=== PATIENT | male | born 1995 | race Caucasian/White ===

== ENCOUNTER 2022-08-22 22:54 | Emergency (ER) | payer SELFPAY ==
[2022-08-22 23:03] VITALS: BP 161/87; PULSE 105; RESP 22; TEMP 36.9; O2SAT 96; BMI 28.1
--- NOTE | 2022-08-22 23:08 | W.ED.GENADLT ---
HPI - General Adult General: Chief complaint: Alcohol Stated complaint: pt would like to detoxic Time Seen by Provider: 08/22/22 23:05 History of Present Illness: Patient was brought in by the supervisor machine workers of a sober living house. The supervisor machine workers said patient needed to be detoxed. Further discussion with the patient noted the patient had just been released from [facility] 2 days ago and had spent the last 2 days with his family partying it up . Patient thought he could just check into the sober living house to complete his parole. However, since patient was intoxicated he was brought to the emergency department for detoxification. Patient states he really does not want to be here but he has to be sober in order to go to the sober living house. Patient denies any seizures. Patient reports no homicidal or suicidal thought. Associated symptoms: Deny nausea, rash or vomiting Review of Systems General: Reports: 10 or more systems reviewed and unremarkable except in HPI and below GI: Denies: nausea or vomiting Musc: Denies: neck pain or back pain Skin/Breast: Denies: rash Psych: Reports: anxiety; Denies: suicidal ideation or homicidal ideation Physical Exam Const: COMMON NORMALS: alert HENMT: COMMON NORMALS: normocephalic HEAD & SCALP: normocephalic Neck/C-Spine: COMMON NORMALS: full ROM Resp: COMMON NORMALS: normal respiratory effort Cardio: COMMON NORMALS: regular rate and regular rhythm RATE: regular rate RHYTHM: regular rhythm GI: COMMON NORMALS: non-tender Extremity: COMMON NORMALS: full ROM Neuro: SENSORIUM/ORIENTATION: Yes alert Skin: COMMON NORMALS: turgor normal GENERAL SKIN EXAM: turgor normal Course Vital Signs: Vital signs: Vital Signs Temperature 98.5 F 08/22/22 23:03 Pulse Rate 105 H 08/22/22 23:03 Respiratory Rate 22 H 08/22/22 23:03 Blood Pressure 161/87 08/22/22 23:03 Pulse Oximetry 96 08/22/22 23:03 Oxygen Delivery Me thod Room Air 08/22/22 23:03 MDM - General Adult Medical Decision Making Patient was brought in intoxicated from a sober living house in [place], [place] for detoxification. Patient had recently been released from [facility] and was going to go to the sober living house to complete his parole but prior to entering the house he was partying with his family. Patient arrived at the sober living house today intoxicated which he was not allowed to enter. Patient was brought to the ER for evaluation and treatment. No injuries noted. Patient admits to being intoxicated with alcohol. Patient has no history of seizures. Differential diagnosis includes but not limited to substance use disorder, alcohol intoxication, major depressive disorder, anxiety disorder. Laboratory values noted alcohol level of 312. Remainder of labs were unremarkable except for some elevation and sodium and chloride at 148?110. Patient was infused with a liter of IV fluids and was given a dose of thiamine. Patient was encouraged to drink plenty of water and fluids and stay well-hydrated. Requested case management to assist with follow-up with a treatment center for substance use disorder. Patient was given Librium 25 mg capsules to to use as needed for alcohol withdrawal symptoms. Patient reported understanding of care plan and need for follow-up or return to the ER. I reviewed this with Dr. Martinez who agreed to plan. Lab Data 08/22/22 23:13 08/22/22 23: Laboratory Results WBC 10.0 10^3/uL (4.0-10.0) 08/22/22 23: RBC 4.48 10^6/uL (4.1-5.3) 08/22/22 23: Hgb 14.4 g/dL (11.7-16.6) 08/22/22 23: Hct 42.4 % (42.0-52.0) 08/22/22 23: MCV 94.6 fl (80-94) H 08/22/22: MCH 32.1 pg (28.0-34.0) 08/22/22 23: MCHC 34.0 g/dL (30.0-36.0) 08/22/22 23: RDW 12.1 % (12.1-15.1) 08/22/22: Plt Count 277 10^3/cmm (130-400) 08/22/22 23: MPV 10.0 fL (7.4-10.4) 08/22/22 23: Neut % (Auto) 35.8 % 08/22/22 23: Lymph % (Auto) 52.2 % 08/22/22 23: [place] % (Auto) 8.3 % 08/22/22 23:13 Eos % (Auto) 2.5 % 08/22/22 23:13 Baso % (Auto) 0.9 % 08/22/22 23:13 Neut # (Auto) 3.59 10^3/uL (1.8-7.7) 08/22/22 23:13 Lymph # (Auto) 5.2 10^3/uL (0.8-4.8) H 08/22/22 23:13 [place] # (Auto) 0.8 10^3/uL (0.2-0.9) 08/22/22 23:13 Eos # (Auto) 0.3 10^3/uL (0.0-0.8) 08/22/22 23:13 Baso # (Auto) 0.1 10^3/uL (0.0-0.1) 08/22/22 23:13 Nucleated RBC % (auto) 0 % 08/22/22 23:13 Nucleated RBCs # 0.0 /100WBC 08/22/22 23:13 Sodium 148 mmol/L (136-145) H 08/22/22 23:13 Potassium 3.9 mmol/L (3.5-5.1) 08/22/22 23:13 Chloride 110 mmol/L (98-107) H 08/22/22 23:13 Carbon Dioxide 22 mmol/L (22-29) 08/22/22 23:13 Anion Gap 19.9 (5-19) H 08/22/22 23:13 BUN 11 mg/dL (6-20) 08/22/22 23:13 Creatinine 1.0 mg/dL (0.7-1.2) 08/22/22 23:13 GFR Calculation 89.6 mL/min (90-130) L 08/22/22 23:13 Glucose 90 mg/dL (65-115) 08/22/22 23:13 Calculated Osmolality 305 mOsm/kg (285-295) H 08/22/22 23:13 Calcium 8.6 mg/dL (8.5-10.5) 08/22/22 23:13 Total Bilirubin 0.4 mg/dL (0.15-1.2) 08/22/22 23:13 AST 29 U/L (0-40) 08/22/22 23:13 ALT 25 U/L (0-41) 08/22/22 23:13 Alkaline Phosphatase 103 U/L (40-130) 08/22/22 23:13 Total Protein 8.1 g/dL (6.6-8.7) 08/22/22 23:13 Albumin 4.9 g/dL (3.5-5.2) 08/22/22 23:13 Globulin 3.2 g/dL (1.3-4.6) 08/22/22 23:13 Vitamin B12 446 pg/mL (232-1245) 08/22/22 23:13 TSH 1.46 uIU/mL (0.27-4.20) 08/22/22 23:13 Salicylates < 0.3 mg/dL (3-10) L 08/22/22 23:13 Acetaminophen < 5.0 ug/mL (10-30) L 08/22/22 23:13 Ethyl Alcohol 312 mg/dL (0-10) H* 08/22/22 23:13 EKG Data EKG 1: EKG interpretation date: 08/22/22 EKG interpretation time: 23:49 Prior EKG tracings: not available for review Interpretation: EKG shows a sinus tachycardia with a regular rate at [address] elevation or ectopy is noted. No prior exams were available for comparison. Discharge Plan Discharge Patient Disposition: Home Clinical Impression: Alcoholic intoxication Qualifiers: Complication of substance-induced condition: uncomplicated Qualified Code(s): F10.920 - Alcohol use, unspecified with intoxication, uncomplicated Condition: Stable Prescriptions: New chlordiazepoxide HCl 25 mg capsule 25 mg PO TID PRN (Reason: alcohol withdrawal) Qty: 15 0RF Discharge Orders: Discharge ED (Routine); Ordered 08/23/22 Ordered By: Nikhil Hamilton Discharge Diet: Usual diet Discharge Activity: Increase activity as tolerated Patient Instructions: Abuse of Alcohol (ED) Activity Restrictions/Additional Instructions: Avoid alcohol. Use chlordiazepoxide 25 mg once 3 times a day as needed for alcohol withdrawal symptoms. Alcohol withdrawal symptoms include shakes, increased anxiety, and alcohol cravings. Healthy diet and activity. Case management will contact you regarding assistance with follow-up with a local or regional substance use disorder facility. Return to ER for new concerns or worsening symptoms. Coding Level of Care Code ED Back Office Medical Assistant for [facility]
--- NOTE | 2022-08-22 23:18 | ECG_ITS ---
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 Measurements Intervals [place] Rate: 104 P: 35 MA: 160 QRS: 23 QRSD: 87 T: 32 QT: 326 QTc: 430 Interpretive Statements SINUS TACHYCARDIA ABNORMAL RHYTHM ECG No previous ECG available for comparison Electronically Signed On 08-23-2022 8:09:25 CDT by Sakshi Glass M.D. [email or web address]
[2022-08-22] MEDS: LORazepam 1 mg Tablet PO (23:22)
[2022-08-22 23:29] LABS: Basophils # 0.1 10^3/uL (0.0-0.1); Basophils % 0.9 %; Eosinophils # 0.3 10^3/uL (0.0-0.8); Eosinophils % 2.5 %; Hematocrit 42.4 % (42.0-52.0); Hemoglobin 14.4 g/dL (11.7-16.6); Lymphocytes # 5.2 10^3/uL (0.8-4.8); Lymphocytes % 52.2 %; Mean Corpuscular Hemoglobin 32.1 pg (28.0-34.0); Mean Corpuscular Volume 94.6 fl (80-94); Monocytes # 0.8 10^3/uL (0.2-0.9); Monocytes % 8.3 %; Neutrophils # 3.59 10^3/uL (1.8-7.7); Neutrophils % 35.8 %; Nucleated Red Blood Cells % 0 %; Platelet Count 277 10^3/cmm (130-400); Red Blood Count 4.48 10^6/uL (4.1-5.3); Red Cell Distribution Width 12.1 % (12.1-15.1)
[2022-08-23 00:05] LABS: Alanine Aminotransferase 25 U/L (0-41); Albumin Level 4.9 g/dL (3.5-5.2); Alkaline Phosphatase 103 U/L (40-130); Blood Urea Nitrogen 11 mg/dL (6-20); Calcium 8.6 mg/dL (8.5-10.5); Carbon Dioxide 22 mmol/L (22-29); Chloride 110 mmol/L (98-107); Globulin 3.2 g/dL (1.3-4.6); Glomerular Filtration Rate 89.6 mL/min (90-130); Glucose 90 mg/dL (65-115); Osmolality Calculated 305 mOsm/kg (285-295); Sodium 148 mmol/L (136-145); Thyroid Stimulating Hormone 1.46 uIU/mL (0.27-4.20); Total Bilirubin 0.4 mg/dL (0.15-1.2); Total Protein 8.1 g/dL (6.6-8.7)
[2022-08-23 00:06] LABS: Acetaminophen < 5.0 ug/mL (10-30); Salicylate < 0.3 mg/dL (3-10)
[2022-08-23 00:07] LABS: Anion Gap 19.9 (5-19); Aspartate Amino Transferase 29 U/L (0-40); Potassium 3.9 mmol/L (3.5-5.1)
[2022-08-23 00:12] LABS: Alcohol Level 312 mg/dL (0-10)
[2022-08-23] MEDS: sodium chloride 0.9% 1,000 ML 999 ML IV (00:36)
[2022-08-23 00:39] LABS: Vitamin B12 446 pg/mL (232-1245)
--- NOTE | 2022-08-23 01:39 | PC.NURSE ---
pt wanting to leave. says he does not want to be here any longer. requested phone and contacted grandmother who is on her way to get him.
--- NOTE | 2022-08-23 08:26 | DCPLANNER ---
senior marketing manager had message to speak with patient about rehab centers for alcohol treatment. senior marketing manager called patient at phone number [phone], unable to speak with patient at this time, unable to leave a voicemail for patient.
--- NOTE | 2022-08-23 08:27 | DCPLANNER ---
order processing manager called patient due to no primary care physician - no contact at this time.
== END 2022-08-23 01:41 | disposition home or self-care (01) ==
PROVIDERS: Emergency Provider Nurse Practitioner Family
DX: F10.129 Alcohol abuse with intoxication, unspecified (principal); Y90.8 Blood alcohol level of 240 mg/100 ml or more
CPT/HCPCS: 36415; 80053; 80307; 82607; 84443; 85025; 93005; 96360; 99284; J7030